=== PATIENT | female | born 1935 | race Caucasian/White ===

== ENCOUNTER 2016-11-18 11:37 | Emergency (ER) | payer OTHER, MEDICAID ==
[~2016-11-18] VITALS: Ht 165.1 cm; Wt 90.7 kg
[2016-11-18 12:03] VITALS: BP_SYST 129
[2016-11-18 13:10] VITALS: BP_SYST 120
== END 2016-11-18 13:10 | disposition home or self-care (01) ==
LOC: SED 11:40
DX: R42 Dizziness and giddiness (principal); Z88.8 Allergy status to other drugs, medicaments and biological substances
CPT/HCPCS: 70551; 99284